=== PATIENT | female | born 1930 | race African-American/Black ===

== ENCOUNTER 2020-12-30 12:37 | Inpatient (IN) ==
[2020-12-30 13:24] LABS: Basophils % 0.5 % (0.0-0.8); Eosinophils # 0.1 10*3/uL (0.0-0.87); Eosinophils % 0.8 % (0.00-10.9); Hematocrit 35.3 VOL% (35.7-47.0); Hemoglobin 11.2 GM/DL (12.0-16.0); Immature Granulocytes % 0.5 %; Immature Granulocytes Absolute 0.03 #; Lymphocytes # 1.4 10*3/uL (1.4-4.0); Lymphocytes % 22.5 % (21.3-54.2); Mean Corpuscular HGB Conc 31.7 GM/DL (32-36); Mean Corpuscular Volume 86.1 FL (87-102); Mean Platelet Volume 9.6 FL (9.6-12.0); Monocytes % 4.6 % (1.7-12.7); Neutrophils % 71.1 % (38.7-73.9); Platelet Count 223 T/CUMM (130-400); Red Cell Distribution Width 13.7 % (9.3-17.3); White Blood Count 6.3 T/CUMM (4-12)
[2020-12-30] MEDS: DEXTROSE 5% NACL 0.45% 1,000 ML IV SCH (13:30)
[2020-12-30] MEDS ORDERED: hydrALAZINE 20 MG/1 ML VIAL ONE (13:30)
[2020-12-30] MEDS ORDERED: hydrALAZINE 20 MG/1 ML VIAL IV STA (13:30)
[2020-12-30] MEDS ORDERED: amLODIPine 10 MG TABLET ONE (13:30)
[2020-12-30] MEDS ORDERED: amLODIPine 5 MG TABLET PO STA (13:30)
[2020-12-30 13:42] LABS: Calcium 9.6 MG/DL (8.5-10.1); Osmolality,Calculated 280.4 MOS/KG (273-304); Potassium 3.3 MMOL/L (3.5-5.1)
[2020-12-30] MEDS ORDERED: GLUCAGON 1 MG VIAL IM STA (18:09)
[2020-12-30] MEDS ORDERED: cloNIDine 0.1 MG TABLET PO STA (18:10)
[2020-12-30] MEDS ORDERED: ONDANSETRON 4 MG/2 ML VIAL IV PRN (21:18)
[2020-12-30] MEDS ORDERED: ACETAMINOPHEN 325 MG TABLET PO PRN (21:18)
[2020-12-30] MEDS ORDERED: DEXTROSE 50% 25 GM/50 ML VIAL IV ONE (21:21)
[2020-12-30] MEDS ORDERED: DEXTROSE 50% 25 GM/50 ML VIAL IV PRN (21:30)
[2020-12-30] MEDS: DOCUSATE SODIUM 100 MG CAPSULE PO SCH (22:02)
[2020-12-31 05:11] LABS: Bilirubin,Urine Negative (Negative); Blood, Urine Negative (Negative); Glucose,Urine (UA) 50 mg/dL (Negative); Hyaline Casts,Urine 3 /LPF (0-3); Ketones,Urine Negative (Negative); Mucus,Urine Occasional /LPF (Occasional); Nitrite,Urine Negative (Negative); Protein,Urine 30 MG/DL; RBC,Urine <1 /HPF (0-4); Squamous Epithelial Cell,Urine Occasional /HPF (0-10); Urine Appearance CLEAR (Clear); Urine Color Yellow (Yellow); Urine Specific Gravity 1.017 (1.001-1.035); Urine Urobilinogen < 2.0 EU/DL (0.2-1.0)
[2020-12-31 05:35] LABS: Basophils % 0.5 % (0.0-0.8); Eosinophils # 0.2 10*3/uL (0.0-0.87); Eosinophils % 2.4 % (0.00-10.9); Hemoglobin 9.1 GM/DL (12.0-16.0); Immature Granulocytes % 0.3 %; Immature Granulocytes Absolute 0.02 #; Lymphocytes # 1.7 10*3/uL (1.4-4.0); Lymphocytes % 22.3 % (21.3-54.2); Mean Corpuscular HGB Conc 32.5 GM/DL (32-36); Mean Platelet Volume 10.3 FL (9.6-12.0); Monocytes % 8.5 % (1.7-12.7); Platelet Count 202 T/CUMM (130-400); Red Blood Count 3.22 MC/CUMM (3.8-5.5); Red Cell Distribution Width 13.9 % (9.3-17.3); White Blood Count 7.4 T/CUMM (4-12)
[2020-12-31] MEDS: DEXTROSE 5% NACL 0.45% 1,000 ML IV SCH (05:46)
[2020-12-31 05:58] LABS: Albumin 2.7 G/DL (3.4-5.0); Bilirubin,Total 0.8 MG/DL (0.20-1.00); Calcium 8.7 MG/DL (8.5-10.1); Osmolality,Calculated 288.3 MOS/KG (273-304); Potassium 3.7 MMOL/L (3.5-5.1); Total Protein 6.6 G/DL (6.4-8.2)
[2020-12-31] MEDS: PANTOPRAZOLE 40 MG TABLET PO SCH (09:29)
[2020-12-31] MEDS: DOCUSATE SODIUM 100 MG CAPSULE PO SCH ×2 (09:29→20:37)
[2020-12-31] MEDS: amLODIPine 10 MG TABLET PO SCH (09:29)
[2020-12-31] MEDS: POTASSIUM CHLORIDE 20 MEQ TABLET PO SCH (09:29)
[2020-12-31] MEDS ORDERED: ALPRAZolam 0.5 MG TABLET PO ONE (09:40)
[2020-12-31] MEDS: SIMVASTATIN 20 MG TABLET PO SCH (20:37)
[2021-01-01] MEDS: PANTOPRAZOLE 40 MG TABLET PO SCH (08:06)
[2021-01-01] MEDS: POTASSIUM CHLORIDE 20 MEQ TABLET PO SCH (08:07)
[2021-01-01] MEDS: amLODIPine 10 MG TABLET PO SCH (08:07)
[2021-01-01] MEDS: ASPIRIN EC 81 MG TABLET PO SCH (08:07)
[2021-01-01] MEDS: DOCUSATE SODIUM 100 MG CAPSULE PO SCH ×2 (08:07→21:19)
[2021-01-01] MEDS: carvediloL 3.125 MG TABLET PO SCH ×2 (08:32→21:19)
[2021-01-01] MEDS: SIMVASTATIN 20 MG TABLET PO SCH (21:20)
[2021-01-02 05:46] LABS: Osmolality,Calculated 275.8 MOS/KG (273-304); Potassium 3.5 MMOL/L (3.5-5.1)
[2021-01-02] MEDS: carvediloL 3.125 MG TABLET PO SCH ×2 (08:23→21:41)
[2021-01-02] MEDS: PANTOPRAZOLE 40 MG TABLET PO SCH (08:23)
[2021-01-02] MEDS: DOCUSATE SODIUM 100 MG CAPSULE PO SCH ×2 (08:23→21:41)
[2021-01-02] MEDS: POTASSIUM CHLORIDE 20 MEQ TABLET PO SCH (08:24)
[2021-01-02] MEDS: amLODIPine 10 MG TABLET PO SCH (08:24)
[2021-01-02] MEDS: ASPIRIN EC 81 MG TABLET PO SCH (08:24)
[2021-01-02] MEDS: SIMVASTATIN 20 MG TABLET PO SCH (21:41)
[2021-01-03] MEDS: amLODIPine 10 MG TABLET PO SCH (08:57)
[2021-01-03] MEDS: ASPIRIN EC 81 MG TABLET PO SCH (08:58)
[2021-01-03] MEDS: POTASSIUM CHLORIDE 20 MEQ TABLET PO SCH (08:58)
[2021-01-03] MEDS: DOCUSATE SODIUM 100 MG CAPSULE PO SCH ×2 (08:58→21:03)
[2021-01-03] MEDS: PANTOPRAZOLE 40 MG TABLET PO SCH (08:58)
[2021-01-03] MEDS: carvediloL 3.125 MG TABLET PO SCH ×2 (09:01→21:03)
[2021-01-03] MEDS: SIMVASTATIN 20 MG TABLET PO SCH (21:03)
[2021-01-04] MEDS: PANTOPRAZOLE 40 MG TABLET PO SCH (09:12)
[2021-01-04] MEDS: amLODIPine 10 MG TABLET PO SCH (09:12)
[2021-01-04] MEDS: carvediloL 3.125 MG TABLET PO SCH ×2 (09:12→21:00)
[2021-01-04] MEDS: POTASSIUM CHLORIDE 20 MEQ TABLET PO SCH (09:12)
[2021-01-04] MEDS: DOCUSATE SODIUM 100 MG CAPSULE PO SCH ×2 (09:13→21:00)
[2021-01-04] MEDS: ASPIRIN EC 81 MG TABLET PO SCH (09:13)
[2021-01-04] MEDS: SIMVASTATIN 20 MG TABLET PO SCH (21:00)
[2021-01-05] MEDS: carvediloL 3.125 MG TABLET PO SCH (09:12)
[2021-01-05] MEDS: ASPIRIN EC 81 MG TABLET PO SCH (09:12)
[2021-01-05] MEDS: PANTOPRAZOLE 40 MG TABLET PO SCH (09:12)
[2021-01-05] MEDS: POTASSIUM CHLORIDE 20 MEQ TABLET PO SCH (09:12)
[2021-01-05] MEDS: DOCUSATE SODIUM 100 MG CAPSULE PO SCH (09:12)
[2021-01-05] MEDS: amLODIPine 10 MG TABLET PO SCH (09:17)
[2021-01-05 17:11] VITALS: BP 174/77
== END 2021-01-05 17:47 | DRG 304 ==
LOC: EDBD → EDUNIT# → N.ED 12:37 → N.EDINP 12:37 → N.5E 21:29
PROVIDERS: ADMIT Family Medicine; ATTEND Family Medicine